=== PATIENT | female | born 1985 | race Caucasian/White ===

== ENCOUNTER 2018-05-22 11:46 | Emergency (ER) | payer OTHER, SELFPAY ==
--- NOTE | 2018-05-22 13:28 | RAD REPORT ---
EXAM DESCRIPTION: RAD - Chest Pa And Lat (2 Views) - 05/22/2018 1:19 pm CLINICAL HISTORY: Cough, shortness of breath, rib pain COMPARISON: None. TECHNIQUE: PA and lateral views of the chest were obtained. FINDINGS: The lungs are slightly hyperexpanded. Diaphragm is flattened and there is a slight increas e in the amount of retrosternal space. Patient has a few scattered granulomas present. No focal conso lidation or mass identifiable. No failure or volume overload. Interstitial markings are prominent fo r age. This is probably baseline. No asymmetry of the pattern seen. A minimal diffuse interstitial ed emeterio or infiltrate could potentially be masked. Trachea is midline. Heart size is normal and central v asculature is within normal limits. No pleural effusion or pneumothorax seen. No thoracic compressi on fracture. No gross evidence for a rib lesion. No aortic abnormality. IMPRESSION: No mass, consolidation or failure finding. As detailed above, chest findings suggest a fibrotic and obstructive lung pattern. Correlation is ne eded with any matching history and any abnormalities of pulmonary function testing.
--- NOTE | 2018-05-22 13:31 | ER ---
Nurse's Notes [facility] Name: Gael Delcid Age: 33 yrs Sex: Female : 1985 Arrival Date: 05/22/2018 Time: 11:49 Bed 11 Private MD: None, None Diagnosis: Acute bronchitis Presentation: 05/22 12:09 Presenting complaint: Patient states: " I have been feeling bad for a few days now. ph I've had a bad cough, my throat is sore, my nose goes from stopped up to running, and I've been throwing up." Pt reports productive cough w/ green phlegm, also reports fever TMAX 102, afebrile in triage. Transition of care: patient was not received from another setting of care. Onset of symptoms was May 22, 2018. Risk Assessment: Do you want to hurt yourself or someone else? Patient reports no desire to harm self or others. Initial Sepsis Screen: Does the patient meet any 2 criteria? No. Patient's initial sepsis screen is negative. Does the patient have a suspected source of infection? No. Patient's initial sepsis screen is negative. Care prior to arrival: None. 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 - Social history:: Smoking status: Patient uses tobacco products, smokes one pack cigarettes per day. - Ebola Screening: : No symptoms or risks identified at this time. Screenin:13 Abuse screen: Denies threats or abuse. Denies injuries from another. Nutritional ph screening: No deficits noted. Tuberculosis screening: No symptoms or risk factors identified. Fall Risk None identified. Assessment: 12:36 General: Appears in no apparent distress. comfortable, slender, well groomed, Behavior ph is calm, cooperative, appropriate for age, Reports fever for 2-3 days. Pain: Complains of pain in throat. Neuro: Level of Consciousness is awake, alert, obeys commands, Oriented to person, place, time, situation. Cardiovascular: Capillary refill < 3 seconds Patient's skin is warm and dry. Respiratory: Reports cough that is productive, Airway is patent Respiratory effort is even, unlabored, Respiratory pattern is regular, symmetrical, Breath sounds are coarse in mediastinum. GI: Reports nausea, vomiting, Patient currently denies abdominal pain. : No signs and/or symptoms were reported regarding the genitourinary system. EENT: Throat is reddened bilaterally Reports nasal congestion nasal discharge that is yellow that is watery pain when swallowing. Derm: Skin is intact, is healthy with good turgor, Skin is pink, warm \\T\\ dry. Musculoskeletal: Circulation, motion, and sensation intact. Range of motion: intact in all extremities. 13:29 Reassessment: Patient appears in no apparent distress at this time. Patient and/or ss family updated on plan of care and expected duration. Pain level reassessed. Patient is alert, oriented x 3, equal unlabored respirations, skin warm/dry/pink. awaiting dispo. Vital Signs: 12:12 BP 115 / 77; Pulse 109; Resp 20; Temp 98.7(O); Pulse Ox 98% on R/A; Weight 49.9 kg; ph Height 5 ft. 8 in. (172.72 cm); Pain 8/10; 12:12 Body Mass Index 16.73 (49.90 kg, 172.72 cm) ph ED Course: 11:49 Patient arrived in ED. sb2 11:49 None, None is Private Physician. sb2 12:09 Preeti Pierre, MERARY is Primary Nurse. ph 12:10 Sean Rosales PA is PHCP. cp 12:10 Giles Arias MD is Attending Physician. cp 12:11 Triage completed. ph 12:13 Arm band placed on. ph 12:13 Patient has correct armband on for positive identification. Bed in low position. Call ph light in reach. Side rails up X 1. Warm blanket given. 13:14 Patient moved to radiology via wheelchair. jb2 13:18 X-ray completed. Patient tolerated procedure well. Patient moved back from radiology. jb2 13:19 XRAY Chest Pa And Lat (2 Views) In Process Unspecified. EDMS 13:36 No provider procedures requiring assistance completed. Patient did not have IV access ss during this emergency room visit. Administered Medications: No medications were administered Outcome: 13:30 Discharge ordered by . cp 13:36 Discharged to home ambulatory, with family. ss 13:36 Condition: good 13:36 Discharge instructions given to patient, family, Instructed on discharge instructions, follow up and referral plans. medication usage, Demonstrated understanding of instructions, follow-up care, medications, Prescriptions given X 4. 13:37 Patient left the ED. Signatures: Dispatcher [employer] EDMS Mehdi Qureshi jb2 Christi England RN RN Preeti Pierre RN RN ph Sean Rosales, PA PA Sara Martinez sb2
--- NOTE | 2018-05-22 13:31 | EDPHYS ---
Physician Documentation [facility] Name: Gael Delcid Age: 33 yrs Sex: Female : 1985 Arrival Date: 05/22/2018 Time: 11:49 Bed 11 Private MD: None, None ED Physician Giles Arias HPI: 05/22 12:20 This 33 yrs old Female presents to ER via Ambulatory with complaints of Flu cp Symptoms. 12:20 The patient or guardian reports cough, that is intermittent, with productive sputum. cp Onset: The symptoms/episode began/occurred 5 day(s) ago. Associated signs and symptoms: Pertinent positives: diarrhea, sore throat, vomiting. Severity of symptoms: in the emergency department the symptoms are unchanged despite home interventions. 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 - Social history:: Smoking status: Patient uses tobacco products, smokes one pack cigarettes per day. - Ebola Screening: : No symptoms or risks identified at this time. ROS: 12:20 Constitutional: Negative for body aches, chills, fever, poor PO intake. cp 12:20 Eyes: Negative for injury, pain, redness, and discharge. cp 12:20 ENT: Positive for sore throat, Negative for drainage from ear(s), ear pain, sinus congestion, difficulty swallowing, difficulty handling secretions. 12:20 Neck: Negative for pain with movement, pain at rest, stiffness, tenderness, bony tenderness. 12:20 Cardiovascular: Negative for chest pain, palpitations. 12:20 Respiratory: Positive for cough, "sounds productive", Negative for shortness of breath, wheezing. 12:20 Abdomen/GI: Positive for vomiting, diarrhea, Negative for abdominal pain, constipation. 12:20 Skin: Negative for cellulitis, rash. 12:20 Neuro: Negative for altered mental status, headache, weakness. 12:20 All other systems are negative. Exam: 12:25 Constitutional: The patient appears in no acute distress, alert, awake, non-toxic, well cp developed, well nourished. 12:25 Head/Face: Normocephalic, atraumatic. Eyes: Pupils equal round and reactive to light, cp extra-ocular motions intact. Lids and lashes normal. Conjunctiva and sclera are non-icteric and not injected. Cornea within normal limits. Periorbital areas with no swelling, redness, or edema. ENT: Nares patent. No nasal discharge, no septal abnormalities noted. Tympanic membranes are normal and external auditory canals are clear. Oropharynx with no redness, swelling, or masses, exudates, or evidence of obstruction, uvula midline. Mucous membranes moist. Neck: Trachea midline, no thyromegaly or masses palpated, and no cervical lymphadenopathy. Supple, full range of motion without nuchal rigidity, or vertebral point tenderness. No Meningismus. Chest/axilla: Normal chest wall appearance and motion. Nontender with no deformity. No lesions are appreciated. 12:25 Cardiovascular: Rate: tachycardic, Rhythm: regular. 12:25 Respiratory: the patient does not display signs of respiratory distress, Respirations: normal, no use of accessory muscles, no retractions, no splinting, no tachypnea, labored breathing, is not present, Breath sounds: bronchial sounds, that are mild, are heard diffusely, decreased breath sounds, are not appreciated, stridor, is not appreciated, + upper airway congestion. wheezing: is not appreciated. 12:25 Abdomen/GI: Exam negative for discomfort, distension, guarding, Inspection: abdomen appears normal. 12:25 Skin: cellulitis, is not appreciated, no rash present. Vital Signs: 12:12 BP 115 / 77; Pulse 109; Resp 20; Temp 98.7(O); Pulse Ox 98% on R/A; Weight 49.9 kg; ph Height 5 ft. 8 in. (172.72 cm); Pain 8/10; 12:12 Body Mass Index 16.73 (49.90 kg, 172.72 cm) ph MDM: 12:10 Patient medically screened. cp 13:00 Differential diagnosis: bronchitis, flu, URI, pneumonia, strep throat. cp 13:30 Data reviewed: vital signs, nurses notes, lab test result(s), radiologic studies, plain cp films. 13:30 Test interpretation: by ED physician or midlevel provider: plain radiologic studies. cp Counseling: I had a detailed discussion with the patient and/or guardian regarding: the historical points, exam findings, and any diagnostic results supporting the discharge/admit diagnosis, lab results, radiology results, to return to the emergency department if symptoms worsen or persist or if there are any questions or concerns that arise at home. 05/22 12:14 Order name: Flu ph 05/22 12:14 Order name: Strep ph 05/22 12:44 Order name: Throat Culture ED[facility] 05/22 13:05 Order name: XRAY Chest Pa And Lat (2 Views) cp 05/22 13:25 Order name: Urine Dipstick--Ancillary (enter results) bd 05/22 13:25 Order name: Urine --Ancillary (enter results) bd 05/22 13:02 Order name: Urine Dipstick-Ancillary (obtain specimen); Complete Time: 13:10 cp 05/22 13:02 Order name: Urine Test (obtain specimen); Complete Time: 13:10 cp Administered Medications: No medications were administered Disposition: 05/23 12:38 Co-signature as Attending Physician, Giles Arias MD. rn Disposition: 05/22/18 13:30 Discharged to Home. Impression: Acute bronchitis. - Condition is Stable. - Discharge Instructions: Acute Bronchitis, Adult. - Prescriptions for Tessalon Perles 100 mg Oral Capsule - take 1 capsule by ORAL route every 8 hours As needed; 15 capsule. Zithromax Z- Rodney 250 mg Oral Tablet - take 1 tablet by ORAL route as directed for 5 days Day 1 - take two (2) tablets one time. Day 2, 3, 4 , 5 take one (1) tablet once daily.; 6 tablet. Albuterol Sulfate 90 mcg/actuation - inhale 1-2 puff by INHALATION route every 4-6 hours; 1 Inhaler. Zofran 4 mg Oral Tablet - take 1 tablet by ORAL route every 12 hours As needed; 20 tablet. - Medication Reconciliation Form, Thank You Letter, Antibiotic Education, Prescription Opioid Use form. - Follow up: Private Physician; When: 2 - 3 days; Reason: Recheck today's complaints. - Problem is new. - Symptoms are unchanged. Signatures: Dispatcher [employer] Giles Dillon MD MD rn Smirch, Shelby, RN RN ss Preeti Pierre RN RN ph Sean Rosales, AHRINI PA cp Corrections: (The following items were deleted from the chart) 05/22 13:37 13:30 05/22/2018 13:30 Discharged to Home. Impression: Acute bronchitis. Condition is ss Stable. Forms are Medication Reconciliation Form, Thank You Letter, Antibiotic Education, Prescription Opioid Use. Follow up: Private Physician; When: 2 - 3 days; Reason: Recheck today's complaints. Problem is new. Symptoms are unchanged. cp
[2018-05-22 17:57] LABS: Urine Blood NEGATIVE (NEG); Urine Glucose NEGATIVE (NEG); Urine Protein NEGATIVE (NEG); Urine Specific Gravity 1.015 (1.005-1.030)
== END 2018-05-22 13:37 | disposition home or self-care (01) ==
LOC: ER 11:46
DX: J20.9 Acute bronchitis, unspecified (principal); F17.210 Nicotine dependence, cigarettes, uncomplicated
CPT/HCPCS: 71046; 81003; 81025; 87070; 87081; 87804; 99283